=== PATIENT | male | born 1935 | race Caucasian/White ===

== ENCOUNTER → 2019-07-28 | Outpatient (CLI) | payer OTHER | END | disposition home or self-care (01) | LOC: PETCFH 12:33 | PROVIDERS: ATTEND Internal Medicine Hematology & Oncology | DX: C83.38 Diffuse large B-cell lymphoma, lymph nodes of multiple sites (principal); J90 Pleural effusion, not elsewhere classified; K76.89 Other specified diseases of liver; E78.5 Hyperlipidemia, unspecified; I10 Essential (primary) hypertension; J45.909 Unspecified asthma, uncomplicated; E03.9 Hypothyroidism, unspecified; Z79.899 Other long term (current) drug therapy | CPT/HCPCS: 78815; A9552 ==

== ENCOUNTER → 2020-03-10 | Outpatient (CLI) | payer OTHER | END | disposition home or self-care (01) | LOC: PETCFH 09:21 | PROVIDERS: ATTEND Internal Medicine Hematology & Oncology | DX: C83.38 Diffuse large B-cell lymphoma, lymph nodes of multiple sites (principal); N21.0 Calculus in bladder | CPT/HCPCS: 78815; A9552 ==